=== PATIENT | male | born 1930 | race Caucasian/White ===

== ENCOUNTER 2016-09-29 12:20 | Inpatient (IN) | payer MEDICARE ==
[~2016-09-29] VITALS: Ht 172.7 cm; Wt 72.6 kg
[2016-09-29 13:28] LABS: APPEARANCE CLEAR (CLEAR); BILIRUBIN NEGATIVE (NEGATIVE); COLOR YELLOW (YELLOW); GLUCOSE NEGATIVE (NEGATIVE); KETONE NEGATIVE (NEGATIVE); LEUKOCYTE ESTERASE TRACE (NEGATIVE); NITRITE NEGATIVE (NEGATIVE); PROTEIN NEGATIVE (NEGATIVE); RED CELLS - URINE 0-5 /hpf (0-5); SPECIFIC GRAVITY 1.015 (1.005-1.020); UROBILINOGEN NORMAL (NORMAL); WHITE CELLS - URINE RARE /hpf (0-5)
[2016-09-29 13:29] LABS: BACTERIA FEW /hpf (NONE SEEN); EPITHELIAL CELLS OCC /hpf (0-5); MUCUS <1+ /lpf (NONE SEEN)
[2016-09-29 13:48] LABS: BASOPHILS 0.1 % (0.0-2.0); EOSINOPHILS 0.6 % (0-7); HEMOGLOBIN 9.3 g/dL (13.5-17.5); IMMATURE GRANULOCYTES 0.2 % (0-5); LYMPHOCYTES 7.2 % (15-50); MCH 28.9 pg (26.0-34.0); MCHC 32.1 g/dL (31.0-37.0); MCV 90.1 fL (80.0-100.0); MEAN PLATELET VOLUME 9.5 fL (7.4-10.4); MONOCYTES 4.4 % (2-11); NEUTROPHILS 87.5 % (40-80); PLATELET COUNT 304 10x3/uL (130-400); RBC 3.22 10x6/uL (4.20-6.10); RDW 15.2 % (11.5-14.5)
[2016-09-29 13:53] LABS: ALBUMIN 2.6 g/dL (3.4-5.0); ANION GAP 12.9 mmol/L (8-16); BILIRUBIN - TOTAL 0.66 mg/dL (0.2-1.3); CALCIUM 8.7 mg/dL (8.5-10.1); CARBON DIOXIDE 27.7 mmol/L (21.0-32.0); CREATININE - SERUM 2.8 mg/dL (0.6-1.3); POTASSIUM - SERUM 3.6 mmol/L (3.5-5.1); PROTEIN - SERUM 6.6 g/dL (6.4-8.2)
[2016-09-29 14:01] LABS: WBC 11.3 10x3/uL (4.8-10.8)
[2016-09-29 14:39] LABS: MAGNESIUM - SERUM 1.8 mg/dL (1.8-2.4)
[2016-09-29 14:45] LABS: TROPONIN-I 0.087 ng/mL (0.000-0.060)
--- NOTE | 2016-09-29 16:34 | NUR ---
RECD TO ROOM 2222 VIA CART FROM ER S/O C/C OF PNEUMONIA COLOR ADQ SKIN WARM AND DRY BREATH SOUNDS DIMINISHED ALERT ORIENTED SL PATENT IN RFA AT PRESENT SITE CLEAN AND DRY PLAN OF CARE GONE OVER WITH PT INCONT OF STOOL AND URINE AT PRESENT CALL LIGHT WITHIN REACH.
[2016-09-29] MEDS ORDERED: PROSCAR5 MG PO (16:39)
[2016-09-29] MEDS ORDERED: FERROUS FUMARA324 MG PO (16:39)
[2016-09-29] MEDS ORDERED: K-DUR20 MEQ PO (16:40)
[2016-09-29] MEDS ORDERED: MIRALAX17 GM PO (16:42)
[2016-09-29] MEDS ORDERED: SINGULAIR10 MG PO (16:45)
[2016-09-29] MEDS ORDERED: OXYBUTYNIN CHLOR5 MG PO (16:45)
[2016-09-29] MEDS ORDERED: OMEPRAZOLE20 M1 PO (16:46)
[2016-09-29] MEDS ORDERED: FLOMAX0.4 MG PO (16:47)
[2016-09-29] MEDS ORDERED: SYNTHROID50 MCG PO (16:47)
[2016-09-29] MEDS ORDERED: VITAMIN D10000 UNI1 PO (16:56)
[2016-09-29] MEDS ORDERED: CYMBALTA30 MG PO (16:56)
[2016-09-29] MEDS ORDERED: REMERON15 MG PO (16:56)
[2016-09-29] MEDS ORDERED: MULTAQ400 MG PO ×2 (16:57→16:58)
[2016-09-29] MEDS ORDERED: LASIX40 MG PO (16:58)
[2016-09-29] MEDS ORDERED: MATZIM LA240 MG PO (16:59)
[2016-09-29] MEDS ORDERED: HYDRALAZINE HCL25 MG PO (17:00)
[2016-09-29] MEDS ORDERED: SYMBICORT 80-10.2 GM INH (17:01)
[2016-09-29] MEDS ORDERED: VITAMIN B-1000 MCG/M IM (17:01)
[2016-09-29] MEDS ORDERED: PHENERGAN25 MG RC (17:03)
[2016-09-29] MEDS ORDERED: HYDROCODONE-APA1 TAB PO (17:04)
[2016-09-29] MEDS ORDERED: ZOFRAN4 MG PO (17:04)
--- NOTE | 2016-09-29 17:09 | NUR ---
Patient Name: CONNER MARTÍNEZ Admission Status: ER Accout number: [id number] Admission Date: 09-29-2016 : 1928 Admission Diagnosis: Pneumonia Attending: AMANDA Current LOS: 1 Anticipated DC Date: 10-02-2016 Planned Disposition: Snf Facility Primary Insurance: MEDICARE A & B Discharge Planning Comments: Patient is a resident at [facility] and plans to return there when he is discharged. CM will continue to follow and will assist with dc plans/needs. Front Desk Monitor: Adriane Livingston RN, [facility] [phone] Is the patient Alert and Oriented? Yes * PCP [facility] * Pharmacy [facility] * Preadmission Environment [facility] * Facility Name [facility] Resident * ADLs Partial Dependent * Partial ADLs (Assistance needed) Bathing Medication Management * List name and contact numbers for known caregivers / representatives who currently or will assist patient after discharge: Jyoti Sesay - daughter - didn't know number * Community resources currently utilized None * Additional services required to return to the preadmission environment? No * Can the patient safely return to the preadmission environment? Yes * Has this patient been hospitalized within the prior 30 days at any hospital? No
[2016-09-29 17:11] VITALS: BP 120/66; BMI 24.3
[2016-09-29 20:32] VITALS: BP 128/49
--- NOTE | 2016-09-29 22:16 | NUR ---
PATIENT RESTING IN BED. NO SIGNS OF DISTRESS NOTED. ALERT AND ORIENTED. DENIES ANY NEEDS AT THIS TIME. BED LOW. CALL LIGHT IN REACH
--- NOTE | 2016-09-30 00:30 | NUR ---
PT IN BED WITH NO DISTRESS. RESPIRATIONS EVEN AND UNLABORED. SIDE RAILS X 2. BED LOW. CALL LIGHT IN REACH.
[2016-09-30 04:00] VITALS: BP 103/41
--- NOTE | 2016-09-30 07:40 | NUR ---
WALKING ROUNDS,WITHOUT DISTRESS.ASSESSMENT PER FLOW SHEET.SANTIAGO MAT PLACED ON BED.WAITING ON BOX FROM [employer],SPOKE WITH SHERI.CALL LIGHT IN REACH.DOOR OPEN
[2016-09-30 08:09] VITALS: BP 132/52
--- NOTE | 2016-09-30 09:50 | NUR ---
REMAINS WITHOUT NEEDS.FAMILY AT BEDSIDE.
[2016-09-30 10:31] LABS: BASOPHILS 0.1 % (0.0-2.0); EOSINOPHILS 0.6 % (0-7); HEMATOCRIT 25.6 % (42.0-54.0); HEMOGLOBIN 8.3 g/dL (13.5-17.5); IMMATURE GRANULOCYTES 0.2 % (0-5); LYMPHOCYTES 7.3 % (15-50); MCH 28.9 pg (26.0-34.0); MCHC 32.4 g/dL (31.0-37.0); MCV 89.2 fL (80.0-100.0); MEAN PLATELET VOLUME 9.5 fL (7.4-10.4); MONOCYTES 3.1 % (2-11); NEUTROPHILS 88.7 % (40-80); PLATELET COUNT 263 10x3/uL (130-400); RBC 2.87 10x6/uL (4.20-6.10); RDW 15.2 % (11.5-14.5); WBC 8.8 10x3/uL (4.8-10.8)
[2016-09-30 11:04] LABS: ALBUMIN 2.2 g/dL (3.4-5.0); ANION GAP 12.7 mmol/L (8-16); BILIRUBIN - TOTAL 0.37 mg/dL (0.2-1.3); CALCIUM 8.1 mg/dL (8.5-10.1); CARBON DIOXIDE 26.7 mmol/L (21.0-32.0); CREATININE - SERUM 2.6 mg/dL (0.6-1.3); POTASSIUM - SERUM 3.4 mmol/L (3.5-5.1)
[2016-09-30 11:40] VITALS: BP 154/58
--- NOTE | 2016-09-30 12:00 | NUR ---
HAS AMBULATED WITH PT.REMAINS WITHOUT DISTRESS.MONITOR FOR NEEDS
[2016-09-30 15:32] VITALS: BP 127/50
--- NOTE | 2016-09-30 18:35 | NUR ---
REMAINS WITHOUT NEEDS,WITHOUT CHANGE.CONT PLAN OF CARE
--- NOTE | 2016-09-30 19:30 | NUR ---
ASSESSMENT PER FLOWSHEET. IV PATENT RT WRIST OF 1/2NS AT 100CC'S/HR SITE CLEAR. SR UP X2 CALL LIGHT WITHIN REACH. BED ALARM SANTIAGO MAT ON AND ACTIVATED. DENIES NEEDS.
[2016-09-30 20:00] VITALS: BP 125/47
--- NOTE | 2016-09-30 21:00 | NUR ---
MEDS GIVEN PER SEP. UYBB=[id number]. NO COVERAGE NEEDED.FOUND ORDERS PUTIN COMPUTER BY DR. WILCOX IV RATE DECREASED TO 50CC'S/HR.
--- NOTE | 2016-10-01 | NUR ---
INC URINE COMPLETE BATH WITH LINENS CHANGED SR UP X2 CALL LIGHT WITHIN REACH. REPOSITIONED IN THE BED.
--- NOTE | 2016-10-01 03:00 | NUR ---
MEDS GIVEN PER MAR. RESTING QUIETLY DENIES NEEDS.
[2016-10-01 04:00] VITALS: BP 128/51
[2016-10-01 04:59] LABS: BASOPHILS 0.1 % (0.0-2.0); HEMATOCRIT 26.5 % (42.0-54.0); HEMOGLOBIN 8.7 g/dL (13.5-17.5); IMMATURE GRANULOCYTES 0.2 % (0-5); LYMPHOCYTES 7.4 % (15-50); MCHC 32.8 g/dL (31.0-37.0); MCV 88.3 fL (80.0-100.0); MEAN PLATELET VOLUME 9.5 fL (7.4-10.4); NEUTROPHILS 85.3 % (40-80); PLATELET COUNT 279 10x3/uL (130-400); RDW 15.1 % (11.5-14.5); WBC 8.1 10x3/uL (4.8-10.8)
[2016-10-01 05:29] LABS: ALBUMIN 2.2 g/dL (3.4-5.0); ANION GAP 12.4 mmol/L (8-16); BILIRUBIN - TOTAL 0.39 mg/dL (0.2-1.3); CALCIUM 8.3 mg/dL (8.5-10.1); CARBON DIOXIDE 26.1 mmol/L (21.0-32.0); CREATININE - SERUM 2.4 mg/dL (0.6-1.3); POTASSIUM - SERUM 3.5 mmol/L (3.5-5.1); PROTEIN - SERUM 6.2 g/dL (6.4-8.2)
--- NOTE | 2016-10-01 06:00 | NUR ---
FSBS FROM LAB [id number]. NO COVERAGE.
[2016-10-01 07:07] LABS: MAGNESIUM - SERUM 1.8 mg/dL (1.8-2.4); PHOSPHOROUS 4.8 mg/dL (2.5-4.9); TROPONIN-I 0.057 ng/mL (0.000-0.060)
--- NOTE | 2016-10-01 07:55 | NUR ---
PATIENT IN MID LY POSITION RESTING WITH EYES CLOSED. RESPIRATIONS EVEN AND UNLABORED. SIDE RAILS UP X2. BED IN LOW POSITION. CALL LIGHT IN REACH.
[2016-10-01 08:12] VITALS: BP 141/56
[2016-10-01 11:50] VITALS: BP 145/50
[2016-10-01 15:38] VITALS: BP 120/48
[2016-10-01 20:00] VITALS: BP 101/40
--- NOTE | 2016-10-01 20:00 | NUR ---
ASSESSMENT PER FLOWSHEET. IV PATENT RT WRIST OF 1/2NS AT 50CC'S/HR SITE CLEAR. SANTIAGO BED ALARM MAT ON BED. SR UP X2 CALL LIGHT WITHIN REACH USES URINAL TO VOID.
--- NOTE | 2016-10-01 22:00 | NUR ---
MEDS GIVEN PER MAR. YAWX=[id number]. NO COVERAGE NEEDED.
[2016-10-02] VITALS: BP 116/52
--- NOTE | 2016-10-02 | NUR ---
EYES CLOSED RESPIRATIONS WITH EASE AND UNLABORED.
--- NOTE | 2016-10-02 03:00 | NUR ---
RESTING QUIETLY DENIES NEEDS.
[2016-10-02 04:00] VITALS: BP 118/66
[2016-10-02 05:45] LABS: BASOPHILS 0.1 % (0.0-2.0); EOSINOPHILS 4.1 % (0-7); HEMATOCRIT 25.3 % (42.0-54.0); HEMOGLOBIN 8.2 g/dL (13.5-17.5); IMMATURE GRANULOCYTES 0.3 % (0-5); MCH 28.9 pg (26.0-34.0); MCHC 32.4 g/dL (31.0-37.0); MCV 89.1 fL (80.0-100.0); MEAN PLATELET VOLUME 9.7 fL (7.4-10.4); MONOCYTES 4.6 % (2-11); NEUTROPHILS 86.9 % (40-80); PLATELET COUNT 280 10x3/uL (130-400); RBC 2.84 10x6/uL (4.20-6.10); RDW 14.9 % (11.5-14.5); WBC 7.8 10x3/uL (4.8-10.8)
[2016-10-02 06:41] LABS: ALBUMIN 2.1 g/dL (3.4-5.0); BILIRUBIN - TOTAL 0.4 mg/dL (0.2-1.3); CALCIUM 8.2 mg/dL (8.5-10.1); CARBON DIOXIDE 22.6 mmol/L (21.0-32.0); CREATININE - SERUM 2.6 mg/dL (0.6-1.3); POTASSIUM - SERUM 3.6 mmol/L (3.5-5.1); PROTEIN - SERUM 5.4 g/dL (6.4-8.2)
--- NOTE | 2016-10-02 07:15 | NUR ---
REPORT RECEIVED FROM BIG DATA LEAD NURSE. CALL LIGHT IN REACH.
[2016-10-02 08:05] VITALS: BP 123/57
--- NOTE | 2016-10-02 08:24 | NUR ---
ASSESSMENT COMPLETED. SANTIAGO MAT ALARM ON. CALL LIGHT IN REACH. WILL CONTINUE WITH PLAN OF CARE.
[2016-10-02 09:19] LABS: IMMUNOGLOBULIN E 16 IU/mL (0-100)
--- NOTE | 2016-10-02 10:23 | NUR ---
NORCO PO WITH AM MEDS D/T PAIN OF 4 IN RIGHT ARM. IV TO RIGHT WRIST LEAKING. DC'D WITH TIP INTACT. RESITED TO RIGHT FOREARM WITH 22 GA X1 STICK. CALL LIGHT IN REACH. SANTIAGO MAT ALARM ON. SPECIMEN CUP GIVEN TO PATIENT FOR RESP SPECIMEN.
--- NOTE | 2016-10-02 11:29 | NUR ---
AWAKE AND ALERT. ORIENTED X3. NO C/O AT THIS TIME. LUNGS ARE CLEAR BUT DIMINISHED THROUGHOUT. REPORTS PRODUCTIVE COUGH. SKIN TEAR TO LEFT AC AREA COVERED WITH TELFA TO PREVENT INFECTION. DENIES NEEDS.
--- NOTE | 2016-10-02 12:19 | NUR ---
COLACE PO AND CEFEPIME IVPB. FSBS 191 SO 2 UNITS HUMALOG SUBQ TO RLQ. DAUGHTER AT BEDSIDE. CALL LIGHT IN REACH.
[2016-10-02 12:28] VITALS: BP 105/50
--- NOTE | 2016-10-02 12:40 | NUR ---
AMBULATED IN HALLWAY WITH PT WITH WALKER. TOLERATED WELL.
[2016-10-02 13:20] LABS: IMMUNOGLOBULIN A 10 mg/dL (61-437); IMMUNOGLOBULIN G 1359 mg/dL (700-1600)
--- NOTE | 2016-10-02 13:28 | NUR ---
SPUTUM SAMPLES COLLECTED AND TAKEN TO LAB.
--- NOTE | 2016-10-02 15:40 | NUR ---
NO NEEDS VOICED AT THIS TIME. CALL LIGHT IN REACH.
[2016-10-02 15:46] VITALS: BP 107/53
--- NOTE | 2016-10-02 17:26 | NUR ---
REFUSES INSULIN AT THIS TIME FOR BLOOD SUGAR OF 152. LASYOJANA AND MAGY BANERJEE PO. HELD APRESOLINE.
--- NOTE | 2016-10-02 18:40 | NUR ---
NO CHANGES IN INITIAL ASSESSMENT. STILL REFUSES SCDs. CALL LIGHT IN REACH. WILL CONTINUE WITH PLAN OF CARE.
--- NOTE | 2016-10-02 19:00 | NUR ---
BEDSIDE REPORT RECIEVED AND CARE OF PT ASSUMED. PT LYING IN SEMI LY'S POSITION WATCHING TV. LUNG SOUNDS DIMINISHED IN ALL CORTEZ. IV IN RIGHT FA PATENT WITH 1/2 NS INFUSING AT 50 ML / HR. WILL MONITOR CLOSLEY FOR NEEDS.
[2016-10-02 20:00] VITALS: BP 108/57
--- NOTE | 2016-10-02 21:35 | NUR ---
HS MEDICATIONS GIVEN. FSBS 194 THIS CHECK REQUIRING COVERAGE WITH 2 UNITS OF HUMALOG PER SLIDING SCALE. PT DECLINES HS SNACK AT THIS TIME. WILL CONTINUE TO MONITOR FOR NEEDS.
[2016-10-03] VITALS (11 sets, daily range): BP systolic 109–131; BP diastolic 44–61; Ht 172.7 cm; Wt 72.6 kg
--- NOTE | 2016-10-03 06:06 | NUR ---
ALL NEEDS MET DURING SHIFT. PT RESTED WELL OVERNIGHT. CONTINUE PLAN OF CARE.
[2016-10-03 06:13] LABS: BASOPHILS 0.2 % (0.0-2.0); HEMATOCRIT 23.2 % (42.0-54.0); HEMOGLOBIN 7.7 g/dL (13.5-17.5); IMMATURE GRANULOCYTES 0.6 % (0-5); LYMPHOCYTES 8.5 % (15-50); MCH 29.1 pg (26.0-34.0); MCHC 33.2 g/dL (31.0-37.0); MCV 87.5 fL (80.0-100.0); MEAN PLATELET VOLUME 9.5 fL (7.4-10.4); MONOCYTES 3.8 % (2-11); NEUTROPHILS 85.9 % (40-80); PLATELET COUNT 277 10x3/uL (130-400); RBC 2.65 10x6/uL (4.20-6.10); RDW 14.7 % (11.5-14.5)
[2016-10-03 06:17] LABS: WBC 5.2 10x3/uL (4.8-10.8)
[2016-10-03 06:39] LABS: ALBUMIN 2.1 g/dL (3.4-5.0); ANION GAP 14.2 mmol/L (8-16); BILIRUBIN - TOTAL 0.39 mg/dL (0.2-1.3); CALCIUM 8.5 mg/dL (8.5-10.1); CARBON DIOXIDE 23.1 mmol/L (21.0-32.0); CREATININE - SERUM 2.9 mg/dL (0.6-1.3); POTASSIUM - SERUM 3.3 mmol/L (3.5-5.1)
--- NOTE | 2016-10-03 07:14 | NUR ---
POTASSIUM 3.3 PER AM LABS. GAVE 40 MEQ PO POTASSIUM MIXED IN JUICE, AND THICKENED, PER PROTOCAL. SCHEDULED RE-DRAW AT 1215 PER PROTOCAL.
--- NOTE | 2016-10-03 07:30 | NUR ---
AWAKE ALERT COLOR ADQ SKIN WARM AND DRY AT PRESENT DENIES ANY NEEDS AT PRESENT.
--- NOTE | 2016-10-03 08:30 | NUR ---
MEDS GIVEN KOLTON WELL AT PRESENT.
--- NOTE | 2016-10-03 08:41 | EC ---
PATIENT:CONNER MARTÍNEZ DATE OF SERVICE: 09/29/16 SEX: M MEDICAL RECORD: [id number] DATE OF : [birth year] LOCATION:D.[facility] [id number] AGE OF PATIENT: 86 ADMISSION DATE: 09/29/16 REFERRING PHYSICIAN: INTERPRETING PHYSICIAN: KRISTIAN MON MD ECHOCARDIOGRAM REPORT ECHO CHARGES 4 ECHO COMPLETE CLINICAL DIAGNOSIS: CHF HX OF CAD/CABG ECHOCARDIOGRAPHIC MEASUREMENTS (adult normal given) AC root (d.<3.7cm) 3.5 LV Septum d (<1.2 cm> 1.2 Valve Excursion 1.3 LV Septum (systole) 1.5 Left Atria (s.<4.0cm> 3.9 LVPW d(<1.2cm) 1.2 RV (d.<2.3cm) 4.1 LVPW (sytole) 1.7 LV diastole(<5.6CM) 4.9 MV E-F(>70mm/sec) LV systole 3.0 LVOT Diameter 1.4 MV exc.(>10mm) 1.0 Est.ejection fraction (50-75%) Pericardial Effusion N DOPPLER: LVIT A 77.0 E 90.0 LA RVSP 47 LVOT 116 AOP1/2T Asc. Ao 231 RVOT 101 RA PA 150 AV Gradient Peak 21.36 AV Mean 10.76 AV Area 1.0 MV Gradient Peak 5.28 MV Mean 2.31 MV Area COMMENTS: Hvac Estimator: Connor BERNARD Tassel Snipper:Connor Suarez TAPE# PACS DATE OF SERVICE: 10/01/2016 Echocardiogram FINDINGS: 1. Left ventricle chamber size is within normal limits. Left ventricular systolic function is normal. Overall ejection fraction estimated at 55%. 2. Left atrium is within normal limits at 3.9 cm. Right atrium and right ventricular chamber sizes are mildly dilated. 3. Valvular structures: Aortic valve demonstrates mild calcific aortic ECHOCARDIOGRAM REPORT [id number] CONNER MARTÍNEZ stenosis. Valve area calculates to 1.0 cm-squared. There is a gradient of 21 mm across the valve. The remaining valvular structures have normal structure and motion. 4. Doppler interrogation elsewise reveals mild mitral regurgitation, moderate tricuspid regurgitation, no other valvular insufficiency or stenosis. 5. No evidence of pericardial effusion or left ventricular thrombus. Pulmonary systolic pressure is estimated at 47 mmHg. TRANSINT:[id number] Voice Confirmation ID: [id number] DOCUMENT ID: [id number] KRISTIAN MON MD at 0841 CC: [id number] DICTATION DATE: 10/01/16 1434 GAME DESIGNER: 10/01/162125 ADM IN [id number] [place] [address]
--- NOTE | 2016-10-03 11:00 | NUR ---
DUSTING LIQS THICKEN WELL AND RET AT PRESENT.
--- NOTE | 2016-10-03 13:00 | NUR ---
AMB IN HALLWAY WITH PT KOLTON WELL AT PRESENT KOLTON WELL AT PRESENT.
--- NOTE | 2016-10-03 13:40 | NUR ---
Nutrition Note: Pt reported that he has no appetite. He is eating 44% meal avg on renal ADA mech soft diet with nectar thick liquids. Rec consider liberalizing diet to regular mech soft with nectar thick liquids to encourage po intake. RD will continue to monitor pt progress.
--- NOTE | 2016-10-03 15:00 | NUR ---
ASLEEP AT PRESENT DENIES ANY NEEDS AT PRESENT RESP EVEN AND UNLABORED TELE IN PLACE PT GOES FROM SINUS TO ATRIAL.
--- NOTE | 2016-10-03 17:00 | NUR ---
QUIET IN ROOM N/C VOICED. VS .
--- NOTE | 2016-10-03 19:00 | NUR ---
BEDSIDE REPORT RECEIVED AND CARE OF PT ASSUMED. PT SITTING UP IN HIGH LY'S POSITION WATCHING TV. STATES HE IS FEELING BETTER TONIGHT AND ATE A GOOD DINNER. IV IN RIGHT AC PATENT WITH 1/2 NS INFUSING AT KVO. WILL MONITOR INGALEY FOR NEEDS.
--- NOTE | 2016-10-03 19:00 | NUR ---
STATUS REMAINS UNCHGD AT PRESENT DENIES ANY NEEDS AT THIS TIME.
--- NOTE | 2016-10-03 20:50 | NUR ---
HS MEDICATIONS GIVEN. FSBS 179 THIS CHECK REQUIRING COVERAGE WITH 2 UNITS OF HUMALOG PER SLIDING SCALE. GAVE CHOCOLATE PUDDING FOR HS SNACK. WILL CONTINUE TO MONITOR FOR NEEDS.
--- NOTE | 2016-10-03 21:00 | NUR ---
TALKED TO PT'S DAUGHTER, AFTER CONFIRMING PASSWORD, TO GIVE UPDATE ON PT THIS EVENING.
--- NOTE | 2016-10-03 21:05 | NUR ---
REPORT FROM LAB THAT BLOOD IS READY. WILL FINISH IVPB THAT IS INFUSING BEFORE STARTING BLOOD.
--- NOTE | 2016-10-03 22:50 | NUR ---
PT CONSENTED FOR BLOOD TRANSFUSION AND WITNESSED.
--- NOTE | 2016-10-03 23:05 | NUR ---
STARTED BLOOD TRANSFUSION. AFEBRILE AT PRE TRANSFUSION VITALS. WILL MONITOR CLOSELY FOR INFUSION REACTION. CALL LIGHT WITHIN REACH.
--- NOTE | 2016-10-03 23:55 | NUR ---
INCREASED RATE OF PRBC'S TO 125 ML / HR. PT IS AFEBRILE WITH STABLE VITALS.
[2016-10-04 00:05] VITALS: BP 123/50
[2016-10-04 00:35] VITALS: BP 125/51
[2016-10-04 01:05] VITALS: BP 131/54
--- NOTE | 2016-10-04 01:45 | NUR ---
PRBC INFUSION COMPLETE. VITALS STABLE AND PT IS AFEBRILE. FLUSHING LINES NOW. WILL CONTINUE TO MONITOR FOR NEEDS.
[2016-10-04 02:05] VITALS: BP 139/57
[2016-10-04 03:05] VITALS: BP 140/58
[2016-10-04 05:44] LABS: BASOPHILS 0.2 % (0.0-2.0); EOSINOPHILS 1.4 % (0-7); HEMATOCRIT 27.4 % (42.0-54.0); IMMATURE GRANULOCYTES 0.9 % (0-5); LYMPHOCYTES 8.9 % (15-50); MCH 28.4 pg (26.0-34.0); MCHC 32.8 g/dL (31.0-37.0); MCV 86.4 fL (80.0-100.0); MEAN PLATELET VOLUME 9.5 fL (7.4-10.4); MONOCYTES 5.7 % (2-11); NEUTROPHILS 82.9 % (40-80); PLATELET COUNT 307 10x3/uL (130-400); RBC 3.17 10x6/uL (4.20-6.10); RDW 15.7 % (11.5-14.5); WBC 6.4 10x3/uL (4.8-10.8)
[2016-10-04 06:09] LABS: % SATURATION 57 % (15-55); IRON 133 ug/dl (35-150); TOTAL IRON BIND CAPACITY 231 ug/dl (260-445); UNSAT IRON BIND CAPACITY 98 ug/dl (150-375)
--- NOTE | 2016-10-04 06:09 | NUR ---
PT BATHED AND ALL LINENS AND GOWN CHANGED. DENTURES SOAKED AND BRUSHED. HAIR WASHED AND OFFERED SHAVE. POSITIONED FOR COMFORT.
[2016-10-04 06:18] LABS: ALBUMIN 2.3 g/dL (3.4-5.0); ANION GAP 14.4 mmol/L (8-16); BILIRUBIN - TOTAL 0.58 mg/dL (0.2-1.3); CALCIUM 9.3 mg/dL (8.5-10.1); CARBON DIOXIDE 22.5 mmol/L (21.0-32.0); POTASSIUM - SERUM 3.9 mmol/L (3.5-5.1); PROTEIN - SERUM 6.6 g/dL (6.4-8.2)
[2016-10-04 07:55] VITALS: BP 121/56
--- NOTE | 2016-10-04 08:00 | NUR ---
PT ASSESSMENT COMPLETE ON WALKING ROUNDS PT AWAKE AND ALERT ORIENTED X 3 LUNGS CLAER BILATERALLY NO ACUTE DISTRESS NTOED VOICES ALL NEEDS TO STAFF CALL LIGHT INREACH SIDE RAILS UP X 2
--- NOTE | 2016-10-04 10:00 | NUR ---
INFORMED BY MICRO PT IS DROPLET ISOLATION FOR ESBL TO SPUTUM. PLACED IN ISOLATION PER PROTOCOL PT AND PT DAUGHTER EDUCATED ON PROTOCOL. EXPRESSED UNDERSTANDING.
--- NOTE | 2016-10-04 10:35 | NUR ---
Rehab Prescreening Consult recieved and the chart has been reviewed. He is a good IRF candidate and will be accepted if he is interested. According to notes he is a resident at [facility]. I will discuss with the CM Kourtney Jordan RN Clinical Liaison, Rehab
[2016-10-04] MEDS ORDERED: ATROVENT 0.02%2.5 ML UPD (13:24)
[2016-10-04] MEDS ORDERED: XOPENEX 0.0.63 MG/3 UPD ×2 (13:24)
[2016-10-04] MEDS ORDERED: BROVANA15 MCG/2 M INH (13:24)
[2016-10-04] MEDS ORDERED: PROCRIT/EP3000 UNITS SC (13:24)
[2016-10-04] MEDS ORDERED: LOVENOX30 MG/0.3 SC (13:24)
[2016-10-04] MEDS ORDERED: PULMICORT0.5 MG/21 UPD (13:25)
[2016-10-04] MEDS ORDERED: MUCINEX DM ER1 EAC1 PO (13:25)
[2016-10-04] MEDS ORDERED: TESSALON PERLE100 MG PO (13:25)
[2016-10-04] MEDS ORDERED: FLUTICASONE PRO16 GM NASAL (13:25)
[2016-10-04] MEDS ORDERED: FLORAJEN3 CAPS460 MG PO (13:26)
[2016-10-04] MEDS ORDERED: PROTONIX40 MG PO (13:26)
[2016-10-04] MEDS ORDERED: COLACE100 MG PO (13:26)
[2016-10-04] MEDS ORDERED: PREDNISONE10 MG PO (13:27)
[2016-10-04] MEDS ORDERED: VIBRAMYCIN 100100 M1 IV (13:29)
[2016-10-04] MEDS ORDERED: MAXIPIME 2 GM/D52 G1 IV (13:29)
--- NOTE | 2016-10-04 18:13 | NUR ---
PT DISCAHRGED TO REHAB UNIT AT THIS ITME DISCHARGE GIVEN TO PT AND COPY TO REHAB SERVICES
== END 2016-10-04 18:14 | DRG 178 ==
LOC: D.ER 12:20 → D.MS 16:01
PROVIDERS: Emergency Medicine; Family Medicine; Internal Medicine Nephrology; Internal Medicine Pulmonary Disease; Nurse Practitioner Acute Care; ADMIT Family Medicine
DX: J69.0 Pneumonitis due to inhalation of food and vomit (principal); J44.0 Chronic obstructive pulmonary disease with (acute) lower respiratory infection; J45.901 Unspecified asthma with (acute) exacerbation; N17.9 Acute kidney failure, unspecified; J44.1 Chronic obstructive pulmonary disease with (acute) exacerbation; J15.6 Pneumonia due to other Gram-negative bacteria; J13 Pneumonia due to Streptococcus pneumoniae; R09.02 Hypoxemia; R79.89 Other specified abnormal findings of blood chemistry; D50.9 Iron deficiency anemia, unspecified; E11.22 Type 2 diabetes mellitus with diabetic chronic kidney disease; E11.65 Type 2 diabetes mellitus with hyperglycemia; I12.9 Hypertensive chronic kidney disease with stage 1 through stage 4 chronic kidney disease, or unspecified chronic kidney disease; N18.9 Chronic kidney disease, unspecified; E11.21 Type 2 diabetes mellitus with diabetic nephropathy; I48.91 Unspecified atrial fibrillation; E03.9 Hypothyroidism, unspecified; N40.0 Benign prostatic hyperplasia without lower urinary tract symptoms; E53.8 Deficiency of other specified B group vitamins; E55.9 Vitamin D deficiency, unspecified

== ENCOUNTER 2016-10-04 19:00 | Inpatient (IN) | payer MEDICARE ==
[~2016-10-04] VITALS: Ht 172.7 cm; Wt 81.6 kg
[~2016-10-04 19:00] MED LIST: ATROVENT 0.02%2.5 ML UPD; BROVANA15 MCG/2 M INH; COLACE100 MG PO; CYMBALTA30 MG PO; FERROUS FUMARA324 MG PO; FLOMAX0.4 MG PO; FLORAJEN3 CAPS460 MG PO; FLUTICASONE PRO16 GM NASAL; HYDRALAZINE HCL25 MG PO; HYDROCODONE-APA1 TAB PO; K-DUR20 MEQ PO; LASIX40 MG PO; LOVENOX30 MG/0.3 SC; MATZIM LA240 MG PO; MAXIPIME 2 GM/D52 G1 IV; MIRALAX17 GM PO; MUCINEX DM ER1 EAC1 PO; MULTAQ400 MG PO; OMEPRAZOLE20 M1 PO; OXYBUTYNIN CHLOR5 MG PO; PHENERGAN25 MG RC; PREDNISONE10 MG PO; PROCRIT/EP3000 UNITS SC; PROSCAR5 MG PO; PROTONIX40 MG PO; PULMICORT0.5 MG/21 UPD; REMERON15 MG PO; SINGULAIR10 MG PO; SYMBICORT 80-10.2 GM INH; SYNTHROID50 MCG PO; TESSALON PERLE100 MG PO; VIBRAMYCIN 100100 M1 IV; VITAMIN B-1000 MCG/M IM; VITAMIN D10000 UNI1 PO; XOPENEX 0.0.63 MG/3 UPD; ZOFRAN4 MG PO
[2016-10-04 19:53] VITALS: BP 134/53; BMI 27.4
--- NOTE | 2016-10-04 21:00 | NUR ---
ADMISSION ASSESMENT HAS BEEN COMPLETED BY RN.
--- NOTE | 2016-10-04 23:13 | NUR ---
PT. IN BED WITH HOB UP FOR COMFORT WITH EYES CLOSED AND RESP. EVEN. CALL LIGHT WITHIN REACH.
--- NOTE | 2016-10-05 02:00 | NUR ---
PT IN BED, EYES CLOSED, CHEST RISING AND FALLING, BED IN LOWEST POSITION AND CALL LIGHT WITHIN REACH.
--- NOTE | 2016-10-05 06:00 | NUR ---
PT IN BED, EYES CLOSED, RESPIRATIONS EVEN AND UNLABORED, BED IN LOWEST POSITION AND CALL LIGHT WITHIN REACH.
[2016-10-05 07:00] VITALS: BP 130/56
--- NOTE | 2016-10-05 07:30 | NUR ---
RESTING IN BED. LAYING ON SIDE. EASY TO AROUSE BUT CONFUSED.
--- NOTE | 2016-10-05 08:17 | NUR ---
VERY CONFUSED. WILL AROUSE WITH LOUD VERBAL STEMULI BUT KEEPS REPEATING SAME STATEMENT OVER AND OVER. OFFERED WATER AND HE COULD NOT DRINK FROM STRAW OR FOLLOW SIMPLE COMMANDS. INCONT OF URINE
[2016-10-05 08:58] LABS: BASOPHILS 0.1 % (0.0-2.0); HEMATOCRIT 30.2 % (42.0-54.0); HEMOGLOBIN 9.7 g/dL (13.5-17.5); IMMATURE GRANULOCYTES 1.3 % (0-5); LYMPHOCYTES 9.6 % (15-50); MCHC 32.1 g/dL (31.0-37.0); MCV 87.3 fL (80.0-100.0); MEAN PLATELET VOLUME 9.4 fL (7.4-10.4); MONOCYTES 4.1 % (2-11); NEUTROPHILS 83.9 % (40-80); PLATELET COUNT 317 10x3/uL (130-400); RBC 3.46 10x6/uL (4.20-6.10)
[2016-10-05 08:59] LABS: WBC 8.3 10x3/uL (4.8-10.8)
[2016-10-05 09:06] LABS: CALCIUM 9.5 mg/dL (8.5-10.1); CARBON DIOXIDE 23.8 mmol/L (21.0-32.0); CREATININE - SERUM 3.5 mg/dL (0.6-1.3); POTASSIUM - SERUM 3.8 mmol/L (3.5-5.1)
[2016-10-05 12:35] VITALS: Ht 172.7 cm; Wt 81.6 kg
[2016-10-05 14:14] LABS: APPEARANCE CLEAR (CLEAR); BILIRUBIN NEGATIVE (NEGATIVE); COLOR STRAW (YELLOW); GLUCOSE NEGATIVE (NEGATIVE); KETONE NEGATIVE (NEGATIVE); LEUKOCYTE ESTERASE NEGATIVE (NEGATIVE); NITRITE NEGATIVE (NEGATIVE); PROTEIN NEGATIVE (NEGATIVE); UROBILINOGEN NORMAL (NORMAL)
[2016-10-05 14:15] LABS: BACTERIA FEW /hpf (NONE SEEN); EPITHELIAL CELLS OCC /hpf (0-5); RED CELLS - URINE OCC /hpf (0-5); WHITE CELLS - URINE OCC /hpf (0-5)
--- NOTE | 2016-10-05 16:23 | NUR ---
LAYING BACK IN BED. HAS BEEN UP IN W/C FOR A WHILE TALKING TO GRANDSON. IS INCONT OF URINE AND STILL CONFUSED BUT NOT CONFUSED THIS MORNING.
[2016-10-05 21:45] VITALS: BP 133/60
--- NOTE | 2016-10-05 21:45 | NUR ---
PT IN BED WITH HOB UP FOR COMFORT, EYES CLOSED, CHEST RISING AND FALLING, BED IN LOWEST POSITION AND CALL LIIGHT WITHIN REACH.
--- NOTE | 2016-10-05 23:28 | NUR ---
PT. IN BED WITH HOB UP FOR COMFORT WITH EYES CLOSED AND RESP. DEEP AND EVEN. IV ANTIBIOTICS INFUSING VIA PUMP WITHOUT ANY ALARMS. CALL LIGHT WITHIN REACH.
--- NOTE | 2016-10-06 02:19 | NUR ---
PT IN BED, RESTING QUIETLY, RESPIRATIONS EVEN AND UNLABORED, BED IN LOWEST POSITION AND CALL LIGHT WITHIN REACH.
--- NOTE | 2016-10-06 03:48 | NUR ---
PT IN BED WITH HOB UP FOR COMFORT, EYES CLOSED, CHEST RISING AND FALLING, BED IN LOWEST POSITION AND CALL LIIGHT WITHIN REACH.
[2016-10-06 07:00] VITALS: BP 119/55
[2016-10-06 07:38] LABS: BASOPHILS 0.2 % (0.0-2.0); EOSINOPHILS 5.1 % (0-7); HEMATOCRIT 30.7 % (42.0-54.0); IMMATURE GRANULOCYTES 1.3 % (0-5); LYMPHOCYTES 14.9 % (15-50); MCH 28.5 pg (26.0-34.0); MCHC 32.6 g/dL (31.0-37.0); MCV 87.5 fL (80.0-100.0); MEAN PLATELET VOLUME 9.2 fL (7.4-10.4); MONOCYTES 4.9 % (2-11); NEUTROPHILS 73.6 % (40-80); PLATELET COUNT 347 10x3/uL (130-400); RBC 3.51 10x6/uL (4.20-6.10); RDW 15.9 % (11.5-14.5); WBC 8.2 10x3/uL (4.8-10.8)
[2016-10-06 07:47] LABS: ANION GAP 14.5 mmol/L (8-16); CALCIUM 8.6 mg/dL (8.5-10.1); CARBON DIOXIDE 22.9 mmol/L (21.0-32.0); CREATININE - SERUM 3.3 mg/dL (0.6-1.3); POTASSIUM - SERUM 3.4 mmol/L (3.5-5.1)
[2016-10-06 07:52] LABS: HEMOGLOBIN A1C 4.7 % (4.8-6.0)
--- NOTE | 2016-10-06 08:00 | NUR ---
DOES NOT AROUSE TO LOUD VERBAL STEMULI. WILL BRIEFLY OPEN EYES AND GRUNT BUT DOES NOT FOLLOW COMMANDS OR MAKE EYE CONTACT. IS NOT TALKING. DTR AT BEDSIDE. SHE STATED SHE TALKED WITH HIM YESTERDAY AND HE TOLD HER HE WAS READY TO AND WANTED TO . HE WAS TIRED. DTR CONSIDERING HOSPICE AT THIS TIME. SHE DOES NOT WANT INTERVENTION AND SHE WANTS PT TO BE A DNR.
--- NOTE | 2016-10-06 10:46 | NUR ---
RESTING QUIETLY IN BED CALL LIGHT IN REACH
--- NOTE | 2016-10-06 12:19 | NUR ---
LAYING IN BED. DTR VISITING. PT HAS EYES OPEN AND WILL MOVE HEAD AND GRUNT BUT DOES NOT FOLLOW SIMPLE ONE STEP COMMANDS OR REQUESTS. NO S/S. IS NOT EATING OR DRINKING ANYTHING TODAY. IV STILL RUNNING ORDERED.
--- NOTE | 2016-10-06 16:00 | NUR ---
RESTING QUIETLY IN BED. NO S/S DISTRESS. REMAINS NON VERBAL AND DOES NOT MOVE EXTREMITIES. INCONT OF B/B. NPO.
[2016-10-06 20:20] VITALS: BP 125/50
--- NOTE | 2016-10-06 20:20 | NUR ---
PT IN BED WITH HOB UP FOR COMFORT, RESTING QUIETLY, DISCONNECTED PT'S IV FLUIDS AND FLUSHED IV, PT TOLERATED PROCEDURE WELL ,BED IN LOWEST POSITION AND HOB UP FOR COMFORT.
--- NOTE | 2016-10-06 20:45 | NUR ---
WHILE ATTEMPTING TO PROVIDE ORAL CARE PT CLAMPED DOWN HIS LIPS AND SHOOK HIS HEAD SIDE TO SIDE A SIGN OF REFUSAL TO THE ORAL CARE.
--- NOTE | 2016-10-06 20:58 | NUR ---
TELEPHONE CONVERSATION WITH DAUGHTER REGARDING IV FLUID CHANGE. DAUGHTER STATED, "I KNOW HE DOES NOT WANT THAT" (IV FLUIDS AND IV ANTIBIOTICS). DAUGHTER AGAIN STATED THAT PT IS A DNR AND HE DOESN'T WANT ANYTHING DONE.
--- NOTE | 2016-10-07 00:50 | NUR ---
PT IN BED WITH HOB UP FOR COMFORT, EYES CLOSED, CHEST RISING AND FALLING, BED IN LOWEST POSITION AND CALL LIGHT WITHIN REACH.
--- NOTE | 2016-10-07 01:56 | NUR ---
PT. IN BED WITH HOB UP FOR COMFORT WITH EYES CLOSED AND RESP. DEEP AND EVEN. CALL LIGHT WITHIN REACH.
--- NOTE | 2016-10-07 04:24 | NUR ---
PT IN BED WITH HOB UP FOR COMFORT, EYES CLOSED, RESPIRATIONS EVEN AND UNLABORED, BED IN LOWEST POSITION AND CALL LIGHT WITHIN REACH.
[2016-10-07 06:07] LABS: BASOPHILS 0.5 % (0.0-2.0); EOSINOPHILS 4.4 % (0-7); HEMATOCRIT 29.8 % (42.0-54.0); HEMOGLOBIN 9.7 g/dL (13.5-17.5); IMMATURE GRANULOCYTES 0.8 % (0-5); LYMPHOCYTES 14.9 % (15-50); MCHC 32.6 g/dL (31.0-37.0); MCV 85.9 fL (80.0-100.0); MEAN PLATELET VOLUME 9.5 fL (7.4-10.4); MONOCYTES 6.4 % (2-11); PLATELET COUNT 349 10x3/uL (130-400); RBC 3.47 10x6/uL (4.20-6.10); RDW 15.6 % (11.5-14.5); WBC 8.3 10x3/uL (4.8-10.8)
[2016-10-07 06:22] LABS: CALCIUM 8.7 mg/dL (8.5-10.1); CARBON DIOXIDE 21.6 mmol/L (21.0-32.0); CREATININE - SERUM 2.9 mg/dL (0.6-1.3)
[2016-10-07 06:29] LABS: ANION GAP 15.2 mmol/L (8-16)
[2016-10-07 07:07] LABS: POTASSIUM - SERUM 2.8 mmol/L (3.5-5.1)
[2016-10-07 08:00] VITALS: BP 144/58
--- NOTE | 2016-10-07 09:04 | NUR ---
REFERRAL HAS BEEN MADE TO [facility] FOR POSSIBLE ADMISSION.
--- NOTE | 2016-10-07 13:24 | NUR ---
[facility] CAME TO FLOOR FOR EVAL AND POSS PLACEMENT IN IN-PATIENT CENTER. DTR WAS HERE TO SPEAK WITH [place] STAFF AND ASK QUESTIONS. PT WAS ACCEPTED AND TRANSPORT ARRANGED. DTR LEFT FLOOR. PT HAS REMAINED LARGLY THE SAME. HE IS NON VERBAL, DOES NOT FOLLOW COMMANDS, HAS REPEATITIVE HEAD MOTION AND GRUNTS OFTEN. HE IS NOT SWALLOWING OR EVEN CLOSING LIPS AROUND A STRAW. HE HAS HAD NO S/S PAIN OR DISTRESS AND IS STILL INCONT OF B/B.
--- NOTE | 2016-10-07 14:00 | NUR ---
D/C TO [facility] VIA AMBULANCE COT. PT'S GLASSES SENT WITH PT. HE WAS MAX ASST TO TRANSFER AND INCONT OF URINE. REPORT CALLED TO DIDI AT [facility] AND PT ASSIGNED TO ROOM 555
--- NOTE | 2016-10-08 13:05 | RHP ---
PATIENT: CONNER MARTÍNEZ MEDICAL RECORD: [id number] ACCOUNT: [id number] LOCATION:[id number] : [birth year] ADMISSION DATE: 10/04/16 REHABILITATION HISTORY AND PHYSICAL EXAMINATION POST ADMISSION PHYSICIAN EXAMINATION Post-Admission Physical Examination and History and Physical DATE OF ADMISSION TO THE REHAB: 10/04/2016 ADMITTING DIAGNOSES: 1. Chronic obstructive pulmonary disease myopathy. 2. Chronic obstructive pulmonary disease/asthma exacerbation, better on nebs and steroids. 3. Right middle lobe, right lower lobe, and left lower lobe aspiration pneumonia, most likely secondary to gram-negative fili or Streptococcal pneumonia, currently on antibiotics. HISTORY OF PRESENT ILLNESS: The patient is an 86-year-old gentleman, who is admitted to rehab with a COPD myopathy. He lives at [facility] with his demented and assist with her care. He presented with shortness of breath and cough. The patient said that symptoms began several days prior to acute hospital admission, but had worsened. He has a history of diabetes, hypertension, iron deficiency anemia, BPH and, vitamin D deficiency, hypothyroidism, arrhythmia, on Multaq, and chronic kidney disease. The patient has smoked less than a pack a day for 40 years. He has got a history of asthma, history of pneumonia. He sees Dr. Quesada for greater than 10 years, having a bronchoscopy done lately and was told he had a fungal infection that was treated with meds for about a week. The patient denies any history of DVT and no history of tuberculosis. 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 The patient has had pneumonia 1 week ago and treated as an outpatient. He has had some aspiration at time. He requires 2 liters of O2 via nasal cannula. He currently is on steroid, bronchodilators, and IV antibiotics and on droplet isolation. He has shown a decrease in his functional mobility and exhibiting proximal muscle weakness with increasing shortness of breath during his acute stay. He was also seen by speech therapy for dysphagia. He was standby assist, independent with ADLs and moderate independent with mobility prior to acute hospitalization. He is currently standby assist to moderate assist with ADLs and minimal assist to moderate assist for mobility. Currently, he is going to need inpatient rehab to get back to his prior level of functioning and get back out to [facility] and be able to take care of his . COMORBIDITIES: Include dysphagia, diabetes mellitus, pneumonia, ex-smoker, elevated BNP, elevated troponin. He has got BPH, hypertension, hypothyroidism, arrhythmia, hypoxia, dyspnea, hypertension, chronic AFib, chronic renal insufficiency and once again, some prostate problems in the past. PAST MEDICAL HISTORY: Significant for diabetes, hypertension, AFib, hypothyroidism, benign prostatic hypertrophy, chronic renal failure and gastroesophageal reflux disease. PAST SURGICAL HISTORY: Includes hip surgery. ALLERGIES: SULFA. HISTORY AND PHYSICAL [id number] CONNER MARTÍNEZ CURRENT MEDICATIONS: Include B12 daily. He is on Megace 40 mg b.i.d. He is on glucagon replacement protocol for low blood sugar. He is on ferrous sulfate 325 mg b.i.d., doxycycline 100 mg b.i.d., Flomax 0.4 mg daily, prednisone 30 mg daily, potassium 20 mEq daily, Protonix 40 mg daily, Synthroid 50 mcg daily, Xopenex updrafts. He is on Flonase nasal spray, finasteride 5 mg daily, enoxaparin 30 mg subQ daily, Cymbalta 30 mg daily, Multaq 400 mg b.i.d., diltiazem 240 mg daily, Pulmicort 0.5 mg b.i.d., Ditropan 5 mg b.i.d., Zofran 4 mg q.8 hours p.r.n., Singulair 10 mg q.h.s., Remeron 15 mg q.h.s. He is on hydrocodone 10/325 as needed for pain, hydralazine 25 mg q.8 hours, guaifenesin 600 mg b.i.d., furosemide 40 mg b.i.d., Procrit 6000 units 3 times weekly, Colace 100 mg b.i.d., Maxipime 2 grams q.12 hours, Tessalon Perles 100 mg t.i.d. He is on Brovana 15 mcg b.i.d., and polyethylene glycol 17 grams in 8 ounces of water daily. HABITS: No current alcohol or tobacco use. He does have a history of tobacco use. FAMILY HISTORY: Noncontributory. SOCIAL HISTORY: Once again, he wants to return back out to [facility] to take care of his . REVIEW OF SYSTEMS: GENERAL: Does complain of weakness and fatigue. HEENT: Does complain of cold, cough, and congestion. CARDIOVASCULAR: Denies any chest pain. LUNGS: Does complain of some shortness of breath. PHYSICAL EXAMINATION: VITAL SIGNS: Stable, afebrile. GENERAL: An elderly gentleman, in no acute distress, alert upon exam. HEENT: Normocephalic and atraumatic. Mucosa moist. NECK: Supple. No lymphadenopathy. LUNGS: Coarse breath sounds bilaterally. CARDIOVASCULAR: Irregular rate and rhythm. ABDOMEN: Benign. EXTREMITIES: No clubbing, cyanosis or edema. NEUROLOGIC: Intact. LABORATORY DATA: His white count is 8.3, H&H of 9.7 and 30.2. His platelet count was noted to be 317. Sodium is noted to be 137, potassium 3.8, BUN and creatinine of 55 and 3.5, and blood sugar is 105. ASSESSMENT: This is an 86-year-old gentleman, who is admitted to rehab with a working diagnosis of chronic obstructive pulmonary disease-induced myopathy complicated by need for IV steroids and IV antibiotics. The patient has potential to make improvement. We instituted the following multidisciplinary therapies including to, but not limited to physical, occupational, respiratory, speech, nutritional services, prosthetics and orthotics. Given his complex condition and risk for more complications, rehabilitation services cannot be provided at a low level of care such as a correction facility. PLAN: 1. Admit to [facility] rehab for intensive inpatient therapy to HISTORY AND PHYSICAL [id number] CONNER MARTÍNEZ include the following disciplines: A. Physical therapy to improve gait, all transfer skills and bed mobility to a modified independent level. B. Occupational therapy to improve activities of daily living to a modified independent level. C. Case management to assist with discharge planning and placement options. D. Nutrition to assist with nutritional needs. E. Rehabilitation nursing to assist in monitoring the patient's underlying medical conditions and to assist with any type of bowel or bladder management. 2. The patient's current medication and medical care will be continued. 3. The patient will be placed on standard fall precautions. 4. The patient's estimated length of stay is approximately 7-10 days. 5. Discuss this patient during care team staff meeting this week. TRANSINT:[id number] Voice Confirmation ID: [id number] DOCUMENT ID: [id number] EZ BROWN MD at 1305 CC: [id number] DICTATION DATE: 10/05/16 1404 ABORIGINAL CEREMONIAL CELEBRANT: 10/05/16 1508 DIS IN 10/07/16 [id number] [place] [address]
== END 2016-10-07 14:00 | disposition home health service (06) | DRG 91 ==
LOC: D.REHAB 19:00
PROVIDERS: Internal Medicine Nephrology; ADMIT Emergency Medicine
DX: G72.89 Other specified myopathies (principal); J69.0 Pneumonitis due to inhalation of food and vomit; J15.4 Pneumonia due to other streptococci; J44.1 Chronic obstructive pulmonary disease with (acute) exacerbation; J45.901 Unspecified asthma with (acute) exacerbation; R13.10 Dysphagia, unspecified; R79.89 Other specified abnormal findings of blood chemistry; N40.0 Benign prostatic hyperplasia without lower urinary tract symptoms; E03.9 Hypothyroidism, unspecified; I48.2 Chronic atrial fibrillation; I12.9 Hypertensive chronic kidney disease with stage 1 through stage 4 chronic kidney disease, or unspecified chronic kidney disease; E11.22 Type 2 diabetes mellitus with diabetic chronic kidney disease; N18.9 Chronic kidney disease, unspecified